=== PATIENT | male | born 1980 | race Hispanic/Latino ===

== ENCOUNTER 2022-08-15 09:35 | Emergency (ER) | payer SELFPAY ==
--- NOTE | ~2022-08-15 | CT_ITS ---
EXAMINATION: CT abd pelvis lumbar w con DATE: 08/15/2022 11:39 INDICATION: Bilateral flank pain. TECHNIQUE: Computed tomography (CT) of the abdomen and pelvis and lumbar spine was performed with 100 mL Omnipaque 350 intravenous contrast. Automated exposure control and iterative reconstruction techn ique were employed. The dose-length product was 346.70 mGy-cm. COMPARISON: None FINDINGS: CT ABDOMEN AND PELVIS: The visualized portions of the lung bases demonstrate mild atelectasis. No ple ural effusion. The heart size is normal. No pericardial effusion. The liver, spleen, pancreas, gallbl adder, adrenal glands, and kidneys are normal. There is a left inguinal hernia containing fat. There are no dilated loops of bowel. The appendix is normal. There are no pathologically enlarged lymph nod es. There is no free intraperitoneal fluid. CT LUMBAR SPINE: Bone alignment is normal. There is mild chronic anterior wedging of T11-L1 vertebral bodies, likely physiologic. Intervertebral disc heights are normal. The following disc levels are sp ecifically discussed: L1-L2: The disc does not extend beyond the endplate margin. There is mild bilateral facet joint osteo arthritis. There is no neural foraminal stenosis. There is no central canal stenosis. L2-L3: The disc does not extend beyond the endplate margin. There is mild bilateral facet joint osteo arthritis. There is no neural foraminal stenosis. There is no central canal stenosis. L3-L4: The disc is bulging. There is mild bilateral facet joint osteoarthritis. There is mild bilater al neural foraminal stenosis. There is no central canal stenosis. L4-L5: The disc is bulging. There is mild bilateral facet joint osteoarthritis. There is mild bilater al neural foraminal stenosis. There is no central canal stenosis. L5-S1: The disc is bulging. There is mild bilateral facet joint osteoarthritis. There is mild bilater al neural foraminal stenosis. There is mild central canal stenosis. IMPRESSION: 1. Left inguinal hernia containing fat. 2. Mild lumbar spondylosis. Reviewed, dictated and finalized at location A.
[2022-08-15 10:00] VITALS: BP 119/72; PULSE 63; RESP 18; TEMP 36.2; O2SAT 100
--- NOTE | 2022-08-15 10:38 | ED.BACK ---
HPI - Back Pain/Injury General Chief Complaint: Back Pain/Injury <LELAND Vizcaino Last Filed: 08/15/22 13:44> Stated Complaint: back pain <LELAND Vizcaino Last Filed: 08/15/22 13:44> Time Seen by Provider: 08/15/22 10:03 <LELAND Vizcaino Last Filed: 08/15/22 13:44> Source: patient <LELAND Vizcaino Last Filed: 08/15/22 13:44> Mode of arrival: ambulatory <LELAND Vizcaino Last Filed: 08/15/22 13:44> Limitations: language barrier <LELAND Vizcaino Last Filed: 08/15/22 13:44> History of Present Illness HPI Narrative: Patient is a 42 y/o male who presents to the ED with c/o back pain. Patient is primarily Malay speaking. [employer] conference interpreter was utilized for assistance with translation. Patient reports having pain in his mid and bilateral lower/mid back for the last 5 years. He states he does not have insurance and hasn't seen anyone for this in several years. He had previously been seen at [facility] and had urine tests performed, and was told everything was normal. He was told at some point he may need a MRI. Patient states pain is worse with movements and bending over. He has not tried anything for the pain ever. Patient reports intermittent dysuria, but denies abdominal pain, nausea, vomiting, incontinence, fevers, weakness, numbness, chest pain, difficulty breathing. <LELAND Vizcaino Last Filed: 08/15/22 13:44> Related Data Allergies/Adverse Reactions: Allergies Allergy/AdvReac Type Severity Reaction Status Date / Time No Known Allergies Allergy Verified 08/15/22 10:21 <LELAND Vizcaino Last Filed: 08/15/22 13:44> Review of Systems Review of Systems: CONSTITUTIONAL: Denies fever, chills, or sweats. CARDIOVASCULAR: Denies chest pain. RESPIRATORY: Denies dyspnea. GASTROINTESTINAL: Denies abdominal pain, nausea, vomiting, or diarrhea. GENITOURINARY: See HPI. SKIN: Denies rash or itching. MUSCULOSKELETAL: See HPI. NEUROLOGIC: Denies tingling, numbness, or weakness. <Homa Raygoza PA-C - Last Filed: 08/15/22 13:44> All systems reviewed & are unremarkable except as noted in HPI and below <Homa Raygoza PA-C - Last Filed: 08/15/22 13:44> PMFSH Past Medical History Medical History: Medical History (Updated 08/15/22 @ 12:03 by Homa Raygoza PA-C) No pertinent past medical history <Homa Raygoza PA-C - Last Filed: 08/15/22 13:44> Surgical History Surgical History: Surgical History (Updated 08/15/22 @ 10:48 by Homa Raygoza PA-C) No pertinent past surgical history <Homa Raygoza PA-C - Last Filed: 08/15/22 13:44> Social History Social History: Social History (Updated 08/15/22 @ 10:48 by Homa Raygoza PA-C) Smoking status: Never smoker <Homa Raygoza PA-C - Last Filed: 08/15/22 13:44> Exam Narrative: GENERAL: Well appearing, well-nourished, non-toxic, in no acute distress. HEAD: Normocephalic, atraumatic. NECK: Supple. No adenopathy, no masses. RESPIRATORY: Airway patent, respirations nonlabored. Clear to auscultation bilaterally, no rales, rhonchi, wheezing. CARDIOVASCULAR: Regular rate and rhythm without murmurs, rubs, or gallops. Peripheral pulses 2+ and equal bilaterally. ABDOMINAL: Soft, no tenderness throughout abdomen, nondistended, no hepatosplenomegaly. Normoactive BS. Positive mild CVA tenderness bilaterally. MUSCULOSKELETAL: Moves all extremities. Strength/ROM intact without gross deformities. Mild tenderness throughout lumbar region, midline and bilateral paraspinal musculature. No palpable deformities or bony step-offs. SKIN: Warm, dry, normal color. No rashes. NEURO: A&O X3. Speech clear. Cranial nerves II-XII grossly intact. Steady gait. No ataxic movements. PSYCHIATRIC: Appropriate mood and affect. Normal interaction. <Homa Raygoza PA-C - Last Filed:
[2022-08-15 10:54] LABS: Basophils Percent Auto 0.3 % (0.2-1.2); Eosinophils Absolute Auto 0.1 K/mm3 (0-0.3); Eosinophils Percent Auto 1.3 % (0-4.4); Hematocrit 47.7 % (42.0-52.0); Immature Granulocyte Absolute 0.02 K/mm3 (0.00-0.031); Immature Granulocyte Percent A 0.3 % (0-0.5); Lymphocytes Absolute Auto 2.61 K/mm3 (0.9-3.2); Lymphocytes Percent Auto 38.6 % (18.3-44.2); Mean Corpuscular HGB Conc 33.5 g/dl (32-36); Mean Corpuscular Hemoglobin 28.8 pg (26-34); Mean Corpuscular Volume 85.8 fl (80-100); Mean Platelet Volume 9.8 fl (7.4-10.4); Monocytes Absolute Auto 0.5 K/mm3 (0.1-0.6); Monocytes Percent Auto 7.7 % (2.6-8.5); Neutrophils Absolute Auto 3.5 K/mm3 (1.3-6.7); Neutrophils Percent Auto 51.8 % (45.5-73.1); Platelet Count Result 217 k/mm3 (150-375); Red Blood Count 5.56 M/mm3 (4.6-6.20); Red Cell Distribution Width 13.4 % (11.5-14.5); White Blood Count 6.8 K/mm3 (4.5-10.0)
[2022-08-15 10:57] LABS: Appearance Urine Clear (Clear); Bilirubin Urine Negative (Negative); Blood Urine Negative (Negative); Color Urine Yellow (Yellow); Glucose Urine UA Negative (Negative); Ketones Urine Negative (Negative); Leukocyte Esterase Ur Negative LEU/UL (Negative); Nitrate Urine Negative (Negative); Protein Urine Negative (Negative); Specific Grav Ur 1.023 (1.001-1.035); Urobilinogen Urine 0.2 mg/dL (<2.0); pH Urine 5.5 (5.0-9.0)
[2022-08-15 10:59] LABS: Add Urine Microscopic? NO
[2022-08-15 11:00] LABS: Alanine Aminotransferase 41 U/L (6-50); Alkaline Phosphatase 73 U/L (38-126); Anion Gap 10 mmol/L (8-16); Aspartate Amino Transferase 37 U/L (17-59); Bilirubin,Total 0.8 mg/dL (0.2-1.3); Blood Urea Nitrogen 21 mg/dL (9-20); Calcium 9.2 mg/dL (8.4-10.2); Carbon Dioxide 22 mmol/L (22-30); Chloride 107 mmol/L (98-107); Estimated Glomerular Filt Rate > 60; Glucose 96 mg/dL (65-110); Potassium 4.6 mmol/L (3.4-5.0); Sodium 139 mmol/L (137-145)
[2022-08-15 12:10] VITALS: BP 120/87; PULSE 95; RESP 16; O2SAT 98
== END 2022-08-15 12:10 | disposition home or self-care (01) ==
PROVIDERS: Emergency Provider Physician Assistant
DX: M54.50 Low back pain, unspecified (principal)
CPT/HCPCS: 36415; 72132; 74177; 80053; 81003; 85025; 99284; Q9967

== ENCOUNTER 2024-02-26 10:01 | Emergency (ER) | payer SELFPAY ==
--- NOTE | ~2024-02-26 | CT_ITS ---
EXAMINATION: CT soft tissue neck w con DATE: 02/26/2024 11:22 INDICATION: Neck swelling. TECHNIQUE: Computed tomography (CT) of the neck was performed with 75 mL Omnipaque-350 intravenous co ntrast. Automated exposure control and iterative reconstruction technique were employed. The dose-vishnu gth product was 449.54 mGy-cm. COMPARISON: None FINDINGS: There are no pathologically enlarged lymph nodes. There are calcifications in the palatine tonsils. The larynx is normal. The cervical carotid arteries are normal. There is mild mucosal thicke gem in the paranasal sinuses. The mastoid air cells are normal. There is mild cervical spondylosis. IMPRESSION: 1. No abnormal neck mass or lymphadenopathy. Reviewed, dictated and finalized at location A.
--- NOTE | ~2024-02-26 | XR_ITS ---
EXAMINATION: XR chest 1V portable DATE: 02/26/2024 10:46 INDICATION: Left neck pain and swelling pain. TECHNIQUE: A single frontal view of the chest was obtained. COMPARISON: CT abdomen and pelvis 08/15/2022 FINDINGS: There are airspace opacities at left lung base. No pleural effusion or pneumothorax. The he art size is normal. IMPRESSION: 1. Airspace opacities at left lung base, consistent with atelectasis versus pneumonia. Reviewed, dictated and finalized at location A. IMPRESSION: 1. Airspace opacities at left lung base, consistent with atelectasis versus pne umonia.
--- NOTE | ~2024-02-26 | CT_ITS ---
EXAMINATION: CT brain wo con DATE: 02/26/2024 11:22 INDICATION: Right neck pain. Occipital headache. TECHNIQUE: Computed tomography (CT) of the head was performed without intravenous contrast. The mA wa s adjusted according to patient size. Iterative reconstruction technique was employed. The dose-lengt h product was 605.33 mGy-cm. COMPARISON: None FINDINGS: There is no intracranial hemorrhage or acute infarction. The pituitary is enlarged with hei ght of 12 mm with heterogeneous attenuation. The ventricles are normal. There is mild mucosal thicken ing in the ethmoid sinuses. The mastoid air cells are normal. IMPRESSION: 1. Enlarged pituitary gland which may be a neoplasm or Rathke cleft cyst. Brain MRI without and with contrast is recommended. Reviewed, dictated and finalized at location A.
[2024-02-26 10:06] VITALS: BP 154/95; PULSE 75; RESP 20; TEMP 36.8; O2SAT 100
--- NOTE | 2024-02-26 10:11 | ED.NECK ---
HPI - Neck Pain/Injury General Chief Complaint: Neck Pain/Injury Stated Complaint: neck pain Time Seen by Provider: 02/26/24 10:08 Source: patient Mode of arrival: ambulatory Limitations: no limitations History of Present Illness HPI Narrative: 44 years old male workup yesterday morning with pain at both side of the neck and posterior, segmented range of motion. Patient reports pain sometimes gets worse with swallowing or turning head to either dilation. 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 Denies any trauma. Fever, chills, nausea, vomiting, headache. History of lower back pain currently on naproxen as needed. Related Data Allergies Allergy/AdvReac Type Severity Reaction Status Date / Time No Known Allergies Allergy Verified 02/26/24 10:13 Review of Systems Review of Systems: All systems reviewed & are unremarkable except as noted in HPI and below PMFSH Past Medical History Medical History No pertinent past medical history Surgical History Surgical History No pertinent past surgical history Social History Social History Smoking status: Never smoker Exam Narrative: General appearance: Well-developed, well-nourished Skin: Normal color Head: Normocephalic, nontraumatic Eyes: Clear conjunctiva ENT: Oropharynx normal, ears normal, nose normal Neck: Supple, nontender Chest and respiratory: Airway patent, no respiratory distress, no accessory muscle use Heart: Regular rate/rhythm Abdomen: Soft, nontender, no organomegaly, quiet bowel sounds Vascular: Normal peripheral pulses, normal capillary refill. Musculoskeletal: Diffuse tenderness of the neck bilaterally and posteriorly, no lymphadenopathy, no mass, left side slightly more swollen than right side. No erythema, no rash, Neurologic: Alert and oriented ?3, [employer] is normal as tested, no gross motor deficit Course Consultations Consultation #1: DR WOOD OUTPATIENT FOLLOW-UP Date: 02/26/24 Time: 12:10 Vital Signs Vital signs: Vital Signs Temperature 36.8 C 02/26/24 10:06 Pulse Rate 75 02/26/24 10:06 Respiratory Rate 20 02/26/24 10:06 Blood Pressure 154/95 H 02/26/24 10:06 Pulse Oximetry 100 02/26/24 10:06 Oxygen Delivery Room Air 02/26/24 10:06 Temperature 36.8 C 02/26/24 10:06 Pulse Rate 75 02/26/24 10:06 Respiratory Rate 20 02/26/24 10:06 Blood Pressure 154/95 H 02/26/24 10:06 Pulse Oximetry 100 02/26/24 10:06 Oxygen Delivery Room Air 02/26/24 10:06 MDM - Neck Pain/Injury MDM Narrative Medical decision making narrative: PATIENT PRESENTS WITH NECK PAIN, NONTRAUMATIC VITAL SIGNS ARE STABLE PHYSICAL EXAMINATION SHOWED DIFFUSE TENDERNESS, SLIGHTLY SWOLLEN LEFT SIDE OF NECK MORE THAN THE RIGHT 1 WITHOUT ANY LYMPH NODES OR MASS OR ERYTHEMA OR RASH DIFFERENTIAL DIAGNOSIS MUSCULOSKELETAL, INTRATHORACIC OR INTRACRANIAL ABNORMALITIES. BLOOD WORKUP SHOWED ELEVATED LIVER ENZYMES, PATIENT IS ALCOHOLIC HIGH LIKELY SECONDARY TO ALCOHOL USE CT HEAD WITHOUT CONTRAST SHOWED QUESTIONABLE PITUITARY TUMOR CT CERVICAL SPINE SHOWED NO ACUTE ABNORMALITIES CHEST X-RAY SHOWED OPACITY LEFT LUNG BASE ATELECTASIS VERSUS PNEUMONIA. ATELECTASIS IS MY CONCERN. PATIENT DOES NOT HAVE ANY SIGN OR SYMPTOMS OF PNEUMONIA. PATIENT WAS ADVISED TO CALL HIS FAMILY PHYSICIAN OR DR. WOOD FOR OUTPATIENT MRI OF THE BRAIN THE PT WAS DISCHARGED TO HOME.THE PT,S CONDITION UPON DISCHARGE WAS FAIR,EDUCATION WAS PROVIDED TO THE PT IN REFERENCE TO T
[2024-02-26 10:53] LABS: Basophils Percent Auto 0.3 % (0.2-1.2); Eosinophils Absolute Auto 0.1 K/mm3 (0-0.3); Eosinophils Percent Auto 0.9 % (0-4.4); Hematocrit 44.1 % (42.0-52.0); Hemoglobin 14.9 g/dL (14.0-18.0); Immature Granulocyte Absolute 0.02 K/mm3 (0.00-0.031); Immature Granulocyte Percent A 0.2 % (0-0.5); Lymphocytes Absolute Auto 1.96 K/mm3 (0.9-3.2); Lymphocytes Percent Auto 21.1 % (18.3-44.2); Mean Corpuscular HGB Conc 33.8 g/dl (32-36); Mean Corpuscular Hemoglobin 29.4 pg (26-34); Mean Platelet Volume 9.7 fl (7.4-10.4); Monocytes Absolute Auto 0.7 K/mm3 (0.1-0.6); Monocytes Percent Auto 7.2 % (2.6-8.5); Neutrophils Absolute Auto 6.5 K/mm3 (1.3-6.7); Neutrophils Percent Auto 70.3 % (45.5-73.1); Platelet Count Result 208 k/mm3 (150-375); Red Blood Count 5.07 M/mm3 (4.6-6.20); Red Cell Distribution Width 13.7 % (11.5-14.5); White Blood Count 9.3 K/mm3 (4.5-10.0)
[2024-02-26 11:03] LABS: Alanine Aminotransferase 116 U/L (6-50); Albumin Level 4.4 g/dL (3.5-5.1); Alkaline Phosphatase 96 U/L (38-126); Anion Gap 7 mmol/L (4-12); Aspartate Amino Transferase 171 U/L (17-59); Bilirubin,Total 0.6 mg/dL (0.2-1.3); Blood Urea Nitrogen 15 mg/dL (9-20); Carbon Dioxide 26 mmol/L (22-30); Chloride 105 mmol/L (98-107); Estimated CRCL calculation 119 ml/min; Estimated Glomerular Filt Rate > 60; Glucose 98 mg/dL (65-110); Sodium 138 mmol/L (137-145)
== END 2024-02-26 12:32 | disposition home or self-care (01) ==
PROVIDERS: Emergency Provider Emergency Medicine
DX: M54.2 Cervicalgia (principal); D49.7 Neoplasm of unspecified behavior of endocrine glands and other parts of nervous system
CPT/HCPCS: 36415; 70450; 70491; 71045; 80053; 85025; 99284; Q9967